=== PATIENT | female | born 1960 | race Caucasian/White ===

== ENCOUNTER → 2017-05-28 | Outpatient (CLI) | payer OTHER ==
[~2017-05-28] MED LIST: TORADOL10 MG PO; ZOFRAN ODT4 MG SL; Zofran4 MG PO
== END ==
LOC: RAD 10:58
DX: M25.572 Pain in left ankle and joints of left foot (principal)

== ENCOUNTER → 2017-12-16 | Outpatient (CLI) | payer OTHER ==
--- NOTE | ~2017-12-16 | EKG ---
[place], [place] ELECTROCARDIOGRAM REPORT NAME: CHRIS NAIDU UNIT #: [id number] ROOM: DOCTOR: DALTON AGUILAR MD BIRTHDATE: [birth year] DOS: 12/16/2017 TIME: 10:48. RATE AND RHYTHM: Sinus bradycardia at 58 beats per minute. SC interval 173 milliseconds, QRS duration 107 milliseconds, corrected QT interval 441 milliseconds, QRS axis -47. IMPRESSION: 1. Normal sinus rhythm. 2. Normal QT interval. 3. Essentially low voltage EKG. 4. Left axis deviation. 5. It is abnormal EKG, but no old EKG to compare with. Also Q-waves are noted in lead III and aVF. These are suggestive, but not diagnostic of old inferior wall myocardial infarction. The patient has seen Cardiology in the past and her chest pain has been noncardiac. She also has T-wave inversion in V1-V3. No old EKG to compare with. This could be her baseline. DALTON AGUILAR MD CM:EKGRPT:ELECTROCARDIOGRAM REPORT [id number] DALTON AGUILAR MD
== END | disposition home or self-care (01) ==
LOC: RESCLI 01:20
DX: F41.9 Anxiety disorder, unspecified (principal); Z76.89 Persons encountering health services in other specified circumstances; Z98.890 Other specified postprocedural states